=== PATIENT | male | born 1945 | race Caucasian/White ===

== ENCOUNTER 2017-01-29 07:36 | Emergency (ER) | payer OTHER ==
--- NOTE | 2017-01-29 07:46 | CPEKG ---
Heart Rate: 58 RR Interval: 1034 P-R Interval: 204 QRSD Interval: 108 QT Interval: 428 QTC Interval: 421 P [place]: 79 QRS [place]: 42 T Wave [place]: 66 EKG Severity - NORMAL ECG - EKG Impression: SINUS RHYTHM Electronically Signed By: Renny Khan 29-Jan-2017 13:55:08
[2017-01-29 07:48] VITALS: TEMP 98.2
--- NOTE | 2017-01-29 07:50 | EDPHY ---
H & P Stated Complaint: Central chest pressure for 1 1/2 hours. Time Seen by Provider: 01/29/17 07:47 - Personal History Current Tetanus/Diphtheria Vaccine: Unsure Current Tetanus Diphtheria and Acellular Pertussis (TDAP): Unsure - Medical/Surgical History Hx Asthma: No Hx Chronic Respiratory Disease: No Hx Diabetes: No Hx Cardiac Disease: No Hx Renal Disease: No Hx Cirrhosis: No Hx Alcoholism: No Hx HIV/AIDS: No Hx Splenectomy or Spleen Trauma: No Other PMH: Sciatica-takes oxycodone. - Social History Smoking Status: Never smoked Constitutional: Initial Vital Signs Temperature (C) 36.8 C 01/29/17 07:46 Heart Rate 66 01/29/17 07:46 Respiratory Rate 16 01/29/17 07:46 Blood Pressure 111/69 01/29/17 07:46 O2 Sat (%) 90 L 01/29/17 07:46 O2 Delivery Mode Room Air O2 (L/minute) 2 Allergies/Adverse Reactions: No Known Allergies Allergy (Verified 01/29/17 07:48) Home Medications: Medication Instructions Recorded Oxycodone HCl 01/29/17 Medical Decision Making - Diagnostics Imaging Results: Imaging Impressions Chest X-Ray 01/29/17 08:01 Impression: No acute cardiopulmonary abnormality. Imaging: I viewed and interpreted images myself ED Course/Re-evaluation: CHIEF COMPLAINT: Chest pain HISTORY OF PRESENT ILLNESS: The patient is a 71 y/o male arriving with his complaining of chest pain onset 1.5 hours ago, shortly after waking. He has no previous cardiac history and has never felt these symptoms previously. He describes his pain as tightness and a dull ache in his central chest. Since arrival in the ED, he developed a "feeling like my trachea is getting constricted." He endorses some mild associated nausea. He denies exacerbation of his symptoms with walking. He denies dyspnea, diaphoresis, headache, cough, fever, recent illness, or recent trauma. He took 2 full-dose aspirins prior to arrival. He has never had a stress test or other cardiac work up. He has a family history of cardiac disease in his mother and possibly his brother. No history of diabetes, smoking, hyperlipidemia. REVIEW OF SYSTEMS: A 10 point review of systems was performed and is negative with the exception of the elements mentioned in the history of present illness. PHYSICAL EXAM: HR, BP, O2 Sat, RR. Temp noted General Appearance: Alert, well hydrated, appropriate, and non-toxic appearing. Head: Atraumatic without scalp tenderness or obvious injury Eyes: Pupils equal, round, reactive to light and accommodation, EOMI, no trauma , no injection. Ears: Clear bilaterally, no perforation, normal landmarks Nose: Atraumatic, no rhinorrhea, clear. Throat: mucus membranes moist. Neck: Supple, nontender, no lymphadenopathy. Respiratory: No retractions, no distress, no wheezes, and no accessory muscle use. Lungs are clear to auscultation bilaterally. Cardiovascular: Regular rate and rhythm, no murmurs, rubs, or gallops. Good capillary refill all extremities. Gastrointestinal: Abdomen is soft, nontender, non-distended, no masses, no rebound, no guarding, no peritoneal signs. Musculoskeletal: Normal active ROM of all extremities, atraumatic. Neurological: Alert, appropriate, and interactive. Nonfocal neuro exam Skin: No rashes, good turgor, no nodules on palpation. Past medical history: Prostate cancer Past surgical history: noncontributory Family history: Mother had heart disease, possibly brother had heart issues as well Social history: Nonsmoker. at bedside. DIAGNOSTICS/PROCEDURES/CRITICAL CARE TIME: The 12 lead EKG was interpreted by myself. EKG shows sinus rhythm rate 58 without signs of ischemia. See hard copy and/or "tracemaster" electronic copy for interpretation. Chest x-ray: Negative DIFFERENTIAL DIAGNOSIS: The differential diagnosis for the patient's chest pain included but was not limited to myocardial ischemia, pulmonary embolus, chest wall pain, pleural inflammation, and pulmonary infectious causes. MEDICAL DECISION MAKING: This is a healthy 71 y/o male who presents for the first time with a 1.5 hour history of anterior chest pain and tightness that radiates up his throat. He has no prior cardiac disease history, however does have first degree relatives with cardiac disease histories. His exam is unremarkable. Plan for full cardiac work up including IV, labs, EKG, and chest x-ray. Chest x-ray negative. EKG shows normal sinus rhythm. Labs pending. 0852: Care delayed because the lab has not yet run patient's lab work despite the tech sending blood down more than an hour ago. 0945: Consulted with Dr. Gutierrez's PA from cardiology. They will asses patient and make admission determination. Labs are unremarkable including troponin, d- dimer, and BNP. 1020: Dr. Gutierrez and his PA assessed patient in the ED. He has informed me the patient does not want further treatment at our facility and is choosing to leave. He plans to go to [place] for further cardiac workup. Dr. Gutierrez offered admission here and advised him of the risks of leaving our department including worsening illness, coma, and . The patient chose to leave AMA. - Data Points Laboratory Results: Laboratory Results 01/29/17 07:55 01/29/17 07:55 01/29/17 01/29/17 01/29/17 07:55 07:55 07:55 WBC 4.49 10^3/uL 10^3/uL (3.80-9.50) RBC 5.01 10^6/uL 10^6/uL (4.40-6.38) Hgb 15.3 g/dL g/dL (13.7-17.5) Hct 43.9 % % (40.0-51.0) MCV 87.6 fL fL (81.5-99.8) MCH 30.5 pg pg (27.9-34.1) MCHC 34.9 g/dL g/dL (32.4-36.7) RDW 13.4 % % (11.5-15.2) Plt Count 198 10^3/uL 10^3/uL (150-400) MPV 10.6 fL fL (8.7-11.7) Neut % (Auto) 48.3 % % (39.3-74.2) Lymph % (Auto) 33.0 % % (15.0-45.0) [place] % (Auto) 11.6 % % (4.5-13.0) Eos % (Auto) 5.6 % % (0.6-7.6) Baso % (Auto) 1.3 % % (0.3-1.7) Nucleat RBC Rel Count 0.0 % % (0.0-0.2) Absolute Neuts (auto) 2.17 10^3/uL 10^3/uL (1.70-6.50) Absolute Lymphs (auto) 1.48 10^3/uL 10^3/uL (1.00-3.00) Absolute Monos (auto) 0.52 10^3/uL 10^3/uL (0.30-0.80) Absolute Eos (auto) 0.25 10^3/uL 10^3/uL (0.03-0.40) Absolute Basos (auto) 0.06 10^3/uL 10^3/uL (0.02-0.10) Absolute Nucleated RBC 0.00 10^3/uL 10^3/uL (0-0.01) Immature Gran % 0.2 % % (0.0-1.1) Immature Gran # 0.01 10^3/uL 10^3/uL (0.00-0.10) D-Dimer < 0.27 ug/mLFEU ug/mLFEU (0.00-0.50) Sodium 140 mEq/L mEq/L (134-144) Potassium 4.2 mEq/L mEq/L (3.5-5.2) Chloride 107 mEq/L mEq/L (97-110) Carbon Dioxide 23 mEq/l mEq/l (22-31) Anion Gap 10 mEq/L mEq/L (8-16) BUN 33 mg/dL H mg/dL (7-23) Creatinine 1.0 mg/dL mg/dL (0.7-1.3) Estimated GFR > 60 Glucose 102 mg/dL H mg/dL (70-100) Calcium 9.2 mg/dL mg/dL (8.5-10.4) Troponin I < 0.012 ng/mL ng/mL (0-0.034) NT-Pro-B Natriuret Pep 48 pg/mL pg/mL (0-125) Departure - Departure Disposition: Against Medical Advice Clinical Impression: Chest pain Qualifiers: Chest pain type: other chest pain Qualified Code(s): R07.89 - Other chest pain Condition: Fair Instructions: Chest Pain (ED) Additional Instructions: Return to the ED immediately for any worsening of condition. We are happy to admit you to our facility for further provocative cardiac testing. By leaving against medical advise you have verbalized complete understanding and acceptance of the risks associated with doing so, including, but not limited to, , chronic & permanent disability and impairment, and other circumstances and consequences too numerous to mention herein Referrals: Hossein Segura MD [Primary Care Provider] - As per Instructions Sina Gutierrez MD [Medical Doctor] - As per Instructions Report Scribed for: Renny Khan Report Scribed by: Dalila Jason Date of Report: 01/29/17 Time of Report: 08:04
[2017-01-29 08:55] LABS: % IMMATURE GRANULYOCYTES 0.2 % (0.0-1.1); ABSOLUTE IMMATURE GRANULOCYTES 0.01 10^3/uL (0.00-0.10); ADD DIFF? NO; ADD MORPH? NO; ADD SCAN? NO; ATYPICAL LYMPHOCYTE FLAG 0 (0-99); FRAGMENT RBC FLAG 0 (0-99); HEMATOCRIT 43.9 % (40.0-51.0); HEMOGLOBIN 15.3 g/dL (13.7-17.5); LEFT SHIFT FLG 0 (0-99); LIPEMIA HEMOLYSIS FLAG 90 (0-99); MEAN CELL HEMOGLOBIN 30.5 pg (27.9-34.1); MEAN CELL HEMOGLOBIN CONCENTR. 34.9 g/dL (32.4-36.7); MEAN CELL VOLUME 87.6 fL (81.5-99.8); MEAN PLATELET VOLUME 10.6 fL (8.7-11.7); PLATELET CLUMPS FLAG 10 (0-99); PLATELET COUNT 198 10^3/uL (150-400); RED BLOOD CELL COUNT 5.01 10^6/uL (4.40-6.38); RED CELL DISTRIBUTION WIDTH 13.4 % (11.5-15.2)
[2017-01-29 09:13] LABS: ANION GAP 10 mEq/L (8-16); CALCIUM 9.2 mg/dL (8.5-10.4); CARBON DIOXIDE 23 mEq/l (22-31); CHLORIDE 107 mEq/L (97-110); GLOMERULAR FILTRATION RATE > 60; GLUCOSE 102 mg/dL (70-100); POTASSIUM 4.2 mEq/L (3.5-5.2); SODIUM 140 mEq/L (134-144)
[2017-01-29 09:25] LABS: TROPONIN I < 0.012 ng/mL (0-0.034)
[2017-01-29 11:02] VITALS: BP 120/70; PULSE 63; RESP 18; O2SAT 93
--- NOTE | 2017-01-29 11:35 | GCON ---
[f rep st] CONSULTATION CARDIOLOGY CONSULTATION. DATE OF CONSULTATION: 01/29/2017 CHIEF COMPLAINT: Chest pain. We were asked by Dr. Renny Khan of Emergency Medicine to evaluate the patient for his chest pain e alvarez. HISTORY OF PRESENT ILLNESS: The patient is a 71-year-old male with a history of prostate cancer and osteoarthritis among other chronic medical issues who presented with chest discomfort. He reports awakening with it this morning at 7:20. He noted it was left-sided substernal discomfort without ra diation. He feels it was a 1 to 2 out of 10 at maximum severity. He then arose from bed and starte d to walk around with no change in the discomfort. He did feel some tightness in his " trachea." H e searched possible causes of the discomfort and became clammy when he read that it could be cardiac . His symptoms likely lasted 1-1/2 hours. He did take 2 aspirin and is pain free currently. He de nies any previous episodes of this. He is very active with walking. Yesterday, he walked 3.5 miles and the equivalent of 18 flights of stairs. He denies any exercise limitations with those activiti es. He is a never smoker, has no history of diabetes, hypertension, or dyslipidemia. He reports hi s mother had coronary disease starting in her 50s. She ultimately of emphysema as she was a sm oker. REVIEW OF SYSTEMS: As per HPI. A complete 10-point review of systems was obtained and negative exc ept for what is dictated. PAST MEDICAL HISTORY: 1. Prostate cancer. 2. Basal cell carcinoma. 3. Colonic polyps. 4. Mononucleosis. 5. Neuralgia. 6. Osteoarthritis. 7. Sciatica. PAST SURGICAL HISTORY: Cataract surgery, lumbar disk surgery, nasal polyp removal, prostate surgery . FAMILY HISTORY: As listed above, mother had heart disease. SOCIAL HISTORY: The patient is a nonsmoker. No significant alcohol intake. PHYSICAL EXAM: VITAL SIGNS: BP of 111/69, heart rate 66, respirations 16, O2 saturation 94% on 2 L /minute, temp of 98.2 degrees Fahrenheit. GENERAL: He is a very pleasant male in no apparent distr ess. HEENT: Eyes are without scleral icterus. HEART: Regular rate and rhythm. LUNGS: Clear. S KIN: Warm and dry. PSYCH: Normal mood and affect for given situation. LABORATORY DATA: BMP with sodium 140, potassium 4.2, chloride 107, CO2 23, BUN 33, creatinine 1, gl ucose 102. Troponin of less than 0.012. NT-proBNP measured at less than 48. CBC with WBC 4.49, he moglobin 15.3, hematocrit 43.9, platelet count 198. D-dimer less than 0.27. 12-lead ECG, personally interpreted, demonstrates sinus bhakti with a rate of 58 and a first-degree A V block. No ischemic changes noted. Chest x-ray reviewed shows nothing acute. IMPRESSION AND PLAN: The patient is a 71-year-old male who presents with a single episode of chest discomfort. Chest discomfort: Symptoms started this morning. Thus far, he has had a negative EKG and enzymes. He is offered multiple options, including stress testing versus admission for further rule out. Th e patient is declining admission or stress testing and would like to initiate cardiac workup at an [facility] facility. Dr. Liz is evaluating the patient currently. We will defer to the emergency de partment staff for further rule out in this patient. /[id number]/MODL
== END 2017-01-29 11:03 | disposition left against medical advice (07) ==
DX: R07.89 Other chest pain (principal); Z85.46 Personal history of malignant neoplasm of prostate

== ENCOUNTER → 2017-09-30 | Outpatient (CLI) | payer OTHER | LOC: BHFA 14:00 | PROVIDERS: ATTEND Internal Medicine Cardiovascular Disease | DX: I77.810 Thoracic aortic ectasia (principal) ==